=== PATIENT | male | born 1955 | race Caucasian/White ===

== ENCOUNTER 2018-05-20 12:05 | Observation (INO) ==
--- NOTE | 2018-05-20 12:29 | Diag Imaging Result Doc PS360 ---
EXAM: CT HEAD W/O CONTRAST INDICATION: stroke like symptoms TECHNIQUE: This exam was performed using automated exposure control, adjustment of mA or kV according to patient size, and/or use of iterative reconstruction technique. COMPARISON: 03/29/2011 FINDINGS: There is suggestion of mild periventricular white matter microangiopathy that is essentially stable. There is no definite acute infarct given the limited sensitivity of CT versus MRI. There is no discrete intracranial mass, mass effect, or intracranial hemorrhage. The surrounding soft tissues and bony structures are essentially unremarkable. IMPRESSION: Mild white matter microangiopathy that is grossly stable. No definite acute intracranial pathology by CT. Electronically signed by Nicko Staples 05/20/2018 12:27 PM
--- NOTE | 2018-05-20 12:53 | PROVIDER DOCUMENTATION ---
This chart was entered by Maliha Coelho Scribe, acting as scribe for Neftali Gómez MD. HPI-Neurological Disorder - General Chief Complaint: Stroke-Like Symptoms Stated Complaint: weakness Time Seen by Provider: 05/20/18 12:21 Source: patient Allergies/Adverse Reactions: Patient Allergies Allergy/AdvReac Type Severity Reaction Status Date / Time morphine Allergy Unknown Verified 05/20/18 12:29 warfarin [From Coumadin] Allergy Unknown Verified 05/20/18 12:29 Home Medications: Home Medication List Medication Instructions Recorded Confirmed Last Taken Type Aspirin 81 mg PO DAILY 05/20/18 05/20/18 05/19/18 History Metoprolol Tartrate 100 mg PO DAILY 05/20/18 05/20/18 1 Day Ago History ~05/19/18 - History of Present Illness-Neuro Nature of Presenting Problem: 62 y/o male presents to the ED with complaint of stroke-like symptoms for approximately 20-30 minutes approximately 1130 today. The patient reports sudden onset of dizziness and nauseous with right sided weakness. The patient gives a history of previous stroke in 2012 with similar symptoms. EMS states symptoms resolved prior to their arrival and BS 77, BP 168/130 which came down to WNL on recheck, HR in the 60's. . The patient does have a history of hypertension for which he takes Metoprolol, takes 81 mg. aspirin daily, and borderline diabetes. Allergy to Coumadin and Morphine. Onset/Duration: reports: just prior to arrival Timing: reports: resolved prior to arrival Context: reports: other (right sided weakness, dizziness) Any recent trauma/injury?: reports: none Character of Deficits: reports: new weakness (right). denies: impaired speech New weakness or altered sensation location:: reports: RUE, CHANTELLE Cognitive Baseline: alert, oriented x3 Gait Baseline: walks without assistance Associated Symptoms: reports: nausea, weakness (right). denies: vomiting Similar Symptoms Previously?: Yes Recently seen or treated by another doctor?: No Review of Systems - Adult - REVIEW OF SYSTEMS - ADULT Constitutional: denies: chills, fever, night sweats, weight gain, weight loss Eyes: reports: no symptoms reported Ears, Nose, Mouth & Throat: reports: no symptoms reported Cardiovascular: reports: no symptoms reported Respiratory: reports: no symptoms reported Gastrointestinal: reports: nausea. denies: diarrhea, vomiting Genitourinary: reports: no symptoms reported Musculoskeletal: reports: no symptoms reported Integumentary: reports: no symptoms reported Neurological: reports: dizziness/vertigo, loss of balance, paresthesia (right). denies: slurred speech, syncope Psychiatric: reports: no symptoms reported Endocrine: reports: no symptoms reported Hematologic/Lymphatic: reports: no symptoms reported Allergic/Immunologic: reports: no symptoms reported All Other Systems: Reviewed and Negative Past History - Adult - PAST MEDICAL HISTORY-ADULT Review of Records: reports: Old Records Reviewed, Medications Reviewed - IMMUNIZATION STATUS Childhood Immunizations: See Nurse Assessment Flu Vaccine: See Nurse Assessment - SOCIAL HISTORY Smoking: denies Substance Use: denies Physical Exam- Neurological - Physical Exam-Neuro Initial Vital Signs Reviewed: Yes General Appearance: alert, no apparent distress HENMT: normocephalic/atraumatic, moist mucous membranes, normal ENT inspection Head Injury: no evidence of injury. negative: Morgan's Sign Neck: supple Respiratory: lungs clear, normal breath sounds. negative: rales, rhonchi, wheezing Cardiovascular: regular rate, rhythm, no gallop, no JVD Abdominal Exam: non tender, soft. negative: guarding, rebound Extremity: normal range of motion, no pedal edema, no calf tenderness sort line Exam: normal hearing, normal speech, PERRL. negative: abnormal eye position, abnormal speech, facial asymmetry, facial droop, facial paresthesias, facial weakness Coordination/Gait: normal finger to nose Motor/Sensory: no motor deficit, no sensory deficit Neurologic: sort line II-XII nml as tested Integumentary: normal color, warm/dry Psych/Mental Status: normal mood/affect, oriented x 3 Progress - PLAN OF CARE/RESULTS Progress/Plan/Lab Results: Vital Signs - 8 hr 05/20/18 12:21 Temperature 97.6 F Pulse Rate 57 L Respiratory Rate 16 Blood Pressure 124/90 O2 Sat by Pulse Oximetry 96 Laboratory Results - last 24 hr 05/20/18 05/20/18 05/20/18 12:26 12:35 12:35 WBC 6.24 RBC 5.59 Hgb 16.4 Hct 47.7 MCV 85.3 MCH 29.3 MCHC 34.4 RDW Std Deviation 13.4 Plt Count 269 MPV 9.4 Immature Gran % (Auto) 0.0 Neut % (Auto) 56.5 Lymph % (Auto) 32.2 [place] % (Auto) 6.4 Eos % (Auto) 3.8 Baso % (Auto) 1.1 H Immature Gran # (Auto) 0.00 Neut # (Auto) 3.52 Lymph # (Auto) 2.01 [place] # (Auto) 0.40 Eos # (Auto) 0.24 Baso # (Auto) 0.07 PT INR PTT (Actin FS) Sodium 137 Potassium 3.7 Chloride 99 Carbon Dioxide 23 L Anion Gap 15 BUN 19 Creatinine 1.1 Estimated GFR/1.73 m2 > 60 BUN/Creatinine Ratio 17 Glucose 108 H POC Glucose 110 H Calculated Osmolality 277 Calcium 9.6 Total Bilirubin 0.35 AST 21 ALT 27 Alkaline Phosphatase 114 Troponin T Total Protein 6.8 Albumin 4.4 Globulin 2.4 Albumin/Globulin Ratio 1.8 05/20/18 05/20/18 12:35 12:35 WBC RBC Hgb Hct MCV MCH MCHC RDW Std Deviation Plt Count MPV Immature Gran % (Auto) Neut % (Auto) Lymph % (Auto) [place] % (Auto) Eos % (Auto) Baso % (Auto) Immature Gran # (Auto) Neut # (Auto) Lymph # (Auto) [place] # (Auto) Eos # (Auto) Baso # (Auto) PT 12.8 INR 0.90 PTT (Actin FS) 25.2 Sodium Potassium Chloride Carbon Dioxide Anion Gap BUN Creatinine Estimated GFR/1.73 m2 BUN/Creatinine Ratio Glucose POC Glucose Calculated Osmolality Calcium Total Bilirubin AST ALT Alkaline Phosphatase Troponin T < 0.010 Total Protein Albumin Globulin Albumin/Globulin Ratio Orders Category Date Time Status Admit - [facility] Routine AdmDCTranf 05/20/18 13:36 Active Activity - Strict Bedrest ORDERED Care 05/20/18 13:36 Active Cardiac Monitoring DIRECTED Care 05/20/18 12:32 Active Misc. NRSG Communication Order DIRECTED Care 05/20/18 13:38 Active Neurological Check Q4H Care 05/20/18 13:37 Active Resuscitation Status Routine Care 05/20/18 13:36 Ordered Saline Loc NOW Care 05/20/18 12:32 Active Vital Signs Order Q 4-HR ASSESS Care 05/20/18 13:36 Active Clear Liquid Diet Diet 05/20/18 13:38 Active CHEST-PORTABLE [RAD] Stat Exams 05/20/18 12:[address] HEAD W/O CONTRAST [CT] Stat Exams 05/20/18 12:06 Completed CBC WITH ELECTRONIC DIFF [HEME] Stat Lab 05/20/18 12:35 Completed COMPREHENSIVE METABOLIC PANEL [CHEM] Stat Lab 05/20/18 12:35 Completed PROTIME WITH INR [COAG] Stat Lab 05/20/18 12:35 Completed PTT [COAG] Stat Lab 05/20/18 12:35 Completed TROPONIN T Stat Lab 05/20/18 12:35 Completed Aspirin Med 05/21/18 09:00 Ordered 81 mg PO DAILY Oxygen Device Routine Oth 05/20/18 13:37 Active EKG [EKG] Stat Ther 05/20/18 12:32 Ordered Transfer/Admit Order [TRANSFER] Routine Transfer 05/20/18 13:39 Ordered Result Diagrams: 05/20/18 12:35 05/20/18 12:35 - EKG 1 Time of EKG reading by physician:: 12:28 EKG Read and Signed by:: Neftali Gómez (No STEMI) EKG Interpretation (*Must complete 3 of following elements*): Abnormal Rate: 57 Rhythm: sinus bradycardia Comments: voltage criteria for LVH - CT/MRI 1 CT Study: Head Impression: Normal (EXAM: CT HEAD W/O CONTRAST INDICATION: stroke like symptoms TECHNIQUE: This exam was performed using automated exposure control, adjustment of mA or kV according to patient size, and/or use of iterative reconstruction technique. COMPARISON: 03/29/2011 FINDINGS: There is suggestion of mild periventricular white matter microangiopathy that is essentially stable. There is no definite acute infarct given the limited sensitivity of CT versus MRI. There is no discrete intracranial mass, mass effect, or intracranial hemorrhage. The surrounding soft tissues and bony st ructures are essentially unremarkable. IMPRESSION: Mild white matter microangiopathy that is grossly stable. No definite acute intracranial pathology by CT. Electronically signed by Nicko Staples 05/20/2018 12:27 PM) - CONSULTS/PCP/HOSPITALIST Notification #1 *Consult/PCP/Hospitalist*: Dr. Green Time Discussed: 13:35 Consult Disposition: Admit Departure - Departure Date of Disposition Decision: 05/20/18 Time of Disposition Decision: 13:41 DIAGNOSIS: TIA (transient ischemic attack) Disposition: HOME 01 Certified Medical Emergency: Emergent Condition: Stable Additional Freetext Instructions: ED Follow Up Instructions: You have been treated by a care provider in the Emergency Department. These instructions are being provided to you so you can have an understanding of how to care for yourself upon discharge. Upon discharge from the Emergency Depar tment, you are responsible for making arrangements for follow-up care by a physician of your choice. Take all prescribed medications as directed. Return to the Emergency Department immediately for any new or worsening symptoms. You may call the Physician Referral phone number at [phone] to obtain a list of Physicians who are taking new patients. Referrals and Follow-Ups: Miguel Plata Jr, MD [Primary Care Provider] - - Critical Care Note This patient required my direct & personal management of CC.: No Attestation - Physician/ JOO Attestation Patient care was provided by Advanced Practice Provider:: No The physician spent face to face time with patient:: Yes Advanced Practice Provider documentation review:: Supervising physician onsite and consulted in the evaluation and care of this patient. The physician did have a face to face encounter with the patient. - NIH Stroke Scale NIH Type: Initial Evaluation Level of Consciousness: 0-Alert This chart was documented by the indicated scribe, (Maliha Coelho, Cl) and accurately reflects the services I performed and decisions made by me, Neftali Gómez MD, as attested by the provider's signature.
[2018-05-20 12:57] LABS: BASO# 0.07 X1000 (0.0-0.2); BASO% 1.1 % (0.0-0.8); EOS# 0.24 X1000 (0.0-0.7); EOS% 3.8 % (0.0-10.0); HEMATOCRIT 47.7 % (42.0-52.0); HEMOGLOBIN 16.4 g/dL (14.0-18.0); LYMPH# 2.01 X1000 (1.2-3.4); LYMPH% 32.2 % (20.5-51.1); MCH 29.3 PG (27-31); MCHC 34.4 g/dL (33-37); MCV 85.3 FL (81-99); MONO% 6.4 % (1.7-9.3); MPV 9.4 FL (7.4-10.4); NEUT# 3.52 X1000 (1.4-6.5); NEUT% 56.5 % (42.2-75.2); PLT 269 X1000 (130-400); RBC 5.59 XMIL (4.7-6.1); RDW 13.4 % (11.5-14.5); WBC 6.24 X1000 (4.8-10.8)
[2018-05-20 13:06] LABS: INR 0.9; PROTIME 12.8 Seconds (11.0-16.0)
[2018-05-20 13:07] LABS: PTT 25.2 Seconds (22.3-41.8)
[2018-05-20 13:27] LABS: AGAP 15; ALB/GLOB RATIO 1.8; ALBUMIN 4.4 g/dL (3.5-5.0); ALKALINE PHOSPHATASE 114 U/L (32-122); BUN 19 mg/dL (8-22); CALCIUM 9.6 mg/dL (8.8-10.2); CHLORIDE 99 mmol/L (98-107); COSMO 277; CREATININE 1.1 mg/dL (0.7-1.2); ESTIMATED GFR > 60; GLUCOSE 108 mg/dL (70-104); GOT 21 U/L (10-34); GPT 27 U/L (10-44); POTASSIUM 3.7 mmol/L (3.5-5.1); SODIUM 137 mmol/L (136-145); TCO2 23 mmol/L (25-35); TOTAL BILIRUBIN 0.35 mg/dL (0.20-1.00); TOTAL PROTEIN 6.8 g/dL (6.3-8.3)
--- NOTE | 2018-05-20 13:47 | Diag Imaging Result Doc PS360 ---
EXAM: CHEST-PORTABLE INDICATION: weakness TECHNIQUE: One view COMPARISON: 08/23/2012 FINDINGS: The lungs are grossly clear. There is no discrete pleural fluid collection or pneumothorax. The cardiac silhouette is slightly prominent but stable, probably due to a pericardial fat pad. Central vasculature is unremarkable. IMPRESSION: No evidence of acute pathology by plain radiograph. Electronically signed by Nicko Staples 05/20/2018 1:45 PM
[2018-05-20] MEDS: PLAVIX PO SCH (17:44)
--- NOTE | 2018-05-20 17:51 | HISTORY AND PHYSICAL ---
Mr. Stafford 62-year-old white gentleman, patient of Dr. Plata was in his usual state of health. The patient was at the a meeting. Patient claimed it was hot, he got dizzy which he meant lightheaded. He did have right-sided weakness lasted for 15 to 20 minutes. Bystander or his coworker did notice some slurred speech. By the time EMS arrived his symptoms resolved. The patient was brought to emergency room. Evaluated by ER physician. The patient had CT scan of the head done which did reveal mild white matter microangiopathy that was grossly stable. No definite acute intracranial pathology by CT. Since then the patient is doing better. Because of his history of CVA in the past and his presentation the patient was admitted for further care. The patient's risk factor include hypertension, male and history of stroke in the past. The patient denied any headache. No typical chest pain or palpitations. No history of unusual cough, expectoration, or hemoptysis. The patient does have problem with epigastric discomfort, at times heartburn. No diarrhea, blood or mucus in the stool. Denied any dysuria or hematuria. No focal weakness. No runny nose, stuffy nose, sinus drainage. Denied any leg swelling. ALLERGIES: Morphine and Coumadin. PAST MEDICAL HISTORY: Significant for gastroesophageal reflux disease, hypertension, history of CVA. PERSONAL HISTORY: Patient is working, denied alcohol or substance abuse. FAMILY HISTORY: Father with dementia and had heart disease. Mother of dementia and complication. MEDICATION: Includes Nexium, hydralazine, Toprol, Mirapex, Micardis, aspirin. PHYSICAL EXAMINATION: GENERAL: Middle-aged white gentleman moderately obese in no acute distress. VITAL SIGNS: Blood pressure 124/90, pulse 57, respirations 16, temperature 97.6 degrees. SKIN: Normal turgor. No rash or petechiae. HEAD: Atraumatic, normocephalic. [place] conjunctivae. Anicteric sclerae. Extraocular muscle movement normal. Fundus cannot be penetrated. Good oral hygiene. No tonsillopharyngeal congestion or exudate. Ears and nose benign. NECK: Supple. No JVD, thyromegaly or lymphadenopathy. CHEST: Bilateral good air entry present. No rales or rhonchi. CARDIOVASCULAR: S1 and S2 heard. No gallop or thrill. ABDOMEN: Soft, globular. Bowel sounds present. No organomegaly or mass. EXTREMITIES: No cyanosis, clubbing. No acute DVT. Peripheral pulsation intact. 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 Cranial nerves 2 through 12 grossly intact. Deep tendon reflex + 2, plantars downgoing, no focalities. LABORATORY DATA: Hemoglobin 16.4, hematocrit 47.7, WBC count 6.24, platelet count 269,000. PT/INR 0.9, PTT 25.2. Electrolytes were fairly benign. CO2 23, blood glucose 108. CONSIDERATION: Patient admitted with transient ischemic attack. Patient does have history of cerebrovascular accident. Currently no residual weakness, patient was on aspirin at home. I am going to add Plavix. Other problems include hypertension, gastritis and reflux disease. 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 We are going to get those results. Will do neuro check, telemetry monitoring, close observation. Initial CT scan was negative. I am going to get MRI of the brain. Fall precaution. Encouraged patient to lose weight. cc: Steven Stallings MD
[2018-05-20] MEDS: MIRAPEX PO SCH (19:49)
[2018-05-20] MEDS: TOPROL XL PO SCH (22:13)
[2018-05-21 07:18] LABS: BASO# 0.05 X1000 (0.0-0.2); BASO% 0.8 % (0.0-0.8); EOS# 0.22 X1000 (0.0-0.7); EOS% 3.6 % (0.0-10.0); HEMATOCRIT 48.9 % (42.0-52.0); HEMOGLOBIN 16.5 g/dL (14.0-18.0); LYMPH# 1.88 X1000 (1.2-3.4); MCH 29.5 PG (27-31); MCHC 33.7 g/dL (33-37); MCV 87.3 FL (81-99); MONO# 0.36 X1000 (0.11-0.59); MONO% 5.9 % (1.7-9.3); MPV 9.6 FL (7.4-10.4); NEUT# 3.56 X1000 (1.4-6.5); NEUT% 58.7 % (42.2-75.2); PLT 253 X1000 (130-400); RDW 13.7 % (11.5-14.5); WBC 6.07 X1000 (4.8-10.8)
[2018-05-21 07:30] LABS: HEMOGLOBIN A1C 5.4 % (4.8-6.0)
[2018-05-21 07:54] LABS: ESTIMATED GFR 56
[2018-05-21 07:59] LABS: AGAP 13; ALB/GLOB RATIO 1.5; ALKALINE PHOSPHATASE 104 U/L (32-122); BUN 18 mg/dL (8-22); CALCIUM 8.9 mg/dL (8.8-10.2); CHLORIDE 100 mmol/L (98-107); CHOLESTEROL 238 mg/dL (0-200); COSMO 281; CREATININE 1.3 mg/dL (0.7-1.2); GLUCOSE 101 mg/dL (70-104); GOT 21 U/L (10-34); GPT 27 U/L (10-44); HDL 29 mg/dL (35-55); MAGNESIUM 2.1 mg/dL (1.5-2.7); POTASSIUM 3.7 mmol/L (3.5-5.1); SODIUM 140 mmol/L (136-145); TCO2 27 mmol/L (25-35); TOTAL BILIRUBIN 0.44 mg/dL (0.20-1.00); TOTAL PROTEIN 6.7 g/dL (6.3-8.3); TRIGLYCERIDES 426 mg/dL (39-160)
[2018-05-21] MEDS ORDERED: ASPIRIN PO SCH (09:00)
[2018-05-21] MEDS ORDERED: APRESOLINE PO SCH (09:00)
[2018-05-21] MEDS ORDERED: MICARDIS PO SCH (09:00)
[2018-05-21] MEDS: PLAVIX PO SCH (09:28)
[2018-05-21] MEDS: TOPROL XL PO SCH ×2 (09:28→20:23)
[2018-05-21] MEDS ORDERED: TRILIPIX PO SCH (12:30)
[2018-05-21] MEDS ORDERED: LIVALO PO SCH (12:30)
--- NOTE | 2018-05-21 12:48 | PROGRESS NOTE ---
DATE: 05/21/2018 SUBJECTIVE: The patient says he feels fine, not having symptoms. He apparently had numbness and weakness on the right side of his body for about 20 minutes during the occurrence, and it was reported that he had some slurred speech. This seems to have all resolved. He has had a stroke that affected the same side of his body about 7 years ago. The patient has had hyperlipidemia, but has not tolerated statins well, and so has not been taking anything for his lipids. OBJECTIVE: Vital Signs: Blood pressure is 130/70, respirations 20, pulse 58, temperature 97.6 degrees Fahrenheit. HEENT: Normocephalic. EOMs intact. PERRLA. Throat clear. Lungs: Clear to auscultation and percussion without rhonchi, rales, or wheezes. Heart: Regular rate and rhythm without murmurs, gallops, friction rubs. Abdomen: Soft. Active bowel sounds. No organomegaly or tenderness. Neurological: Intact grossly. LABORATORY DATA: Chemistries are essentially normal. Creatinine up a little at 1.3. CBC normal. Triglycerides were 426, cholesterol 238, HDL 29, LDL not reportable due to the high triglycerides. The patient has been started on Plavix and aspirin. ASSESSMENT: 1. Transient ischemic attack. 2. Previous cerebrovascular accident. 3. Uncontrolled hyperlipidemia. 4. Hypertension. PLAN: The patient has had a recent echo and carotid flow studies. Will try to get those results. Will start him on Pepcid 40 mg p.o. b.i.d. Will start him on Trilipix 135 mg daily. Will start him on Livalo 4 mg daily. Will see if he can tolerate the Livalo better than the other statins. MRI scan has been ordered. He says he gets very claustrophobic. Will give him Xanax 1 mg 45 minutes prior to going for the scan. Will consult Neurology. cc: MD Steven Padilla Jr, MD
[2018-05-21] MEDS: PEPCID PO SCH ×2 (15:18→20:23)
[2018-05-21 16:24] LABS: INR 0.91; PROTIME 12.9 Seconds (11.0-16.0); PTT 27.2 Seconds (22.3-41.8)
[2018-05-21 16:25] LABS: BASO# 0.06 X1000 (0.0-0.2); EOS# 0.17 X1000 (0.0-0.7); EOS% 2.8 % (0.0-10.0); HEMATOCRIT 49.1 % (42.0-52.0); LYMPH# 1.74 X1000 (1.2-3.4); MCH 29.9 PG (27-31); MCHC 34.6 g/dL (33-37); MCV 86.4 FL (81-99); MONO# 0.37 X1000 (0.11-0.59); MONO% 6.2 % (1.7-9.3); MPV 9.3 FL (7.4-10.4); NEUT# 3.65 X1000 (1.4-6.5); PLT 266 X1000 (130-400); RBC 5.68 XMIL (4.7-6.1); RDW 13.6 % (11.5-14.5); WBC 5.99 X1000 (4.8-10.8)
[2018-05-21 16:32] LABS: AGAP 15; BUN 18 mg/dL (8-22); CALCIUM 8.9 mg/dL (8.8-10.2); CHLORIDE 100 mmol/L (98-107); COSMO 279; CREATININE 1.2 mg/dL (0.7-1.2); ESTIMATED GFR > 60; GLUCOSE 91 mg/dL (70-104); POTASSIUM 3.6 mmol/L (3.5-5.1); SODIUM 139 mmol/L (136-145); TCO2 24 mmol/L (25-35)
--- NOTE | 2018-05-21 16:33 | Diag Imaging Result Doc PS360 ---
EXAM: CT HEAD W/O CONTRAST INDICATION: Code Stroke TECHNIQUE: This exam was performed using automated exposure control, adjustment of mA or kV according to patient size, and/or use of iterative reconstruction technique. COMPARISON: 05/20/2018 FINDINGS: There is patchy low attenuation in the periventricular and subcortical white matter suggesting mild microangiopathy, stable. There may be minimal encephalomalacia involving the left occipital lobe. This is also stable. There is no definite acute infarct given the limited sensitivity of CT versus MRI. There is no discrete intracranial mass, mass effect, or intracranial hemorrhage. The surrounding soft tissues and bony structures are essentially unremarkable. IMPRESSION: Stable chronic changes as described. No definite acute intracranial pathology by CT. Electronically signed by Nicko Staples 05/21/2018 4:31 PM
[2018-05-21] MEDS ORDERED: POTASSIUM CHLORIDE 10 MEQ in NS 1,000 ML IV SCH (17:00)
--- NOTE | 2018-05-21 17:27 | PROGRESS NOTE ---
DATE: 05/21/2018 CHIEF COMPLAINT: Slurred speech. Right-sided weakness. Mr. Stafford 62-year-old white gentleman admitted with numbness, tingling right side and some slurred speech. The patient does have history of CVA in the past. Known case of hypertension, hyperlipidemia. The patient admitted with similar symptoms yesterday. The patient was doing fairly well until today when he developed these symptoms. I advised nurse to call code stroke, order CT scan of the brain and certain lab. Patient's symptoms resolved within 10 minutes. We heard repeat CT scan did not show any acute changes. The patient's speech also improved. The patient claimed this time symptoms are not as severe as yesterday. He denied any headache. No high-grade fever, chills. No history of urinary or bowel incontinence. No dysphagia or odynophagia. His slurred speech improved. PAST MEDICAL HISTORY: Significant for CVA, hypertension, hyperlipidemia. OBJECTIVE: Vital signs: Blood pressure at noon 121/75, pulse 63, respirations 20, temperature 97.7 degrees. Skin: No rash or petechiae. HEENT: Head atraumatic, normocephalic. [place] conjunctivae. Anicteric sclerae. Extraocular muscle movement normal. Fundus cannot be penetrated. Good oral hygiene. No tonsillopharyngeal congestion or exudate. Ears and nose benign. Neck: Supple. No JVD, thyromegaly or lymphadenopathy. Chest: Bilateral good air entry present. No rales or rhonchi. CVS: S1 and S2 heard. No gallop or thrill. Abdomen: Soft. No distention. Bowel sounds present. No organomegaly or mass. 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 Cranial nerves 2 through 12 grossly intact. Deep tendon reflex +2. 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 Muscle power seems to be symmetrical. Plantars were downgoing. CONSIDERATION: Transient ischemic attack. When I saw the patient he regained baseline status. Hypertension, hyperlipidemia. Patient was started on Livalo and Trilipix. History of cerebrovascular accident. I will transfer patient to ICU. Hydration. Patient is on aspirin and Plavix. Will continue Pepcid. Discussed patient's presentation with Dr. Valenzuela, the neurologist. Will do neurology consult and neuro check. I am trying to get CT angiogram of carotid and brain. Continue rest of the treatment. We did discuss about anticoagulation and we decided to wait. I am going to hold on his Micardis. Overall plan and prognosis discussed with the patient. cc: Steven Stallings MD
[2018-05-21] MEDS: MIRAPEX PO SCH (18:00)
--- NOTE | 2018-05-21 19:55 | Diag Imaging Result Doc PS360 ---
EXAM: CT ANGIOGRAM HEAD/NECK INDICATION: tia TECHNIQUE: This exam was performed using automated exposure control, adjustment of mA or kV according to patient size, and/or use of iterative reconstruction technique. Thin section axial images through the head and neck were obtained. 3-D MIPS were generated. COMPARISON: No prior CTA had or neck is available for comparison. FINDINGS: Head: There is focal moderate stenosis involving the right MCA just proximal to the bifurcation. There is normal contrast opacification distal to this. There is no evidence of flow-limiting stenosis involving the left MCA. The left and right ACAs are patent throughout. 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 It appears patent, however. The right CONCRETE STONE FABRICATING SUPERVISOR is patent. There are a couple of focal stenoses involving the basilar artery, one of which is fairly severe. However, it does remain patent. There is mild atherosclerotic calcification involving the cavernous segments of the ICAs bilaterally. No high-grade stenosis is identified. No cerebral aneurysm or vascular malformation is identified. Neck: There is only trace atherosclerotic calcification involving the proximal ICA on the right. There is no evidence of flow-limiting stenosis, vascular malformation, dissection, or aneurysm involving the internal carotid arteries, external carotid arteries, or the common carotid arteries. Only a trace amount of contrast is seen in the left vertebral artery distally the remainder of the left vertebral artery is nonvisualized indicating that it is severely congenitally hypoplastic, or less likely, has been excluded. There is mild atherosclerotic calcification and narrowing involving the distal vertebral artery on the right near the foramen magnum. It remains patent. There is no flow-limiting stenosis or vascular malformation identified involving the right vertebral artery. IMPRESSION: 1.Focal stenoses seen at the M1 segment of the right MCA just proximal to the bifurcation as well as the basilar artery as described. No other intracranial flow-limiting arterial stenosis is identified. 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 3.Trace atherosclerotic calcification at the proximal right ICA but no flow-limiting stenosis involving the carotid systems bilaterally. Electronically signed by Nicko Staples 05/21/2018 7:52 PM
[2018-05-21 22:18] VITALS: BP 136/88
[2018-05-22] MEDS ORDERED: XANAX PO SCH (08:00)
--- NOTE | 2018-05-22 08:14 | EKG Report ---
Test Performed on : 05/21/2018 4:37:01 PM Test Reason : Poss CVA Blood Pressure : / mmHG Vent. Rate : 054 BPM Atrial Rate : 054 BPM P-R Int : 176 ms QRS Dur : 098 ms QT Int : 426 ms P-R-T Axes : 024 -33 -06 degrees QTc Int : 403 ms Sinus bradycardia. Left axis deviation Voltage criteria for left ventricular hypertrophy Abnormal ECG When compared with ECG of 20-MAY-2018 12:27, (Unconfirmed) No significant change was found Unconfirmed Result
--- NOTE | 2018-05-22 10:39 | EKG Report ---
Test Performed on : 05/20/2018 12:27:10 PM Test Reason : STROKE LIKE Blood Pressure : / mmHG Vent. Rate : 057 BPM Atrial Rate : 057 BPM P-R Int : 156 ms QRS Dur : 092 ms QT Int : 428 ms P-R-T Axes : 036 -29 -01 degrees QTc Int : 416 ms Sinus bradycardia. Voltage criteria for left ventricular hypertrophy Abnormal ECG When compared with ECG of 29-MAR-2011 13:19, No significant change was found Unconfirmed Result
== END 2018-05-21 23:00 | disposition short-term general hospital (02) ==
LOC: SUPCPDRO → 3N 12:05 → ED 12:05 → 3N 14:37 → ICU 05-21 17:28
PROVIDERS: ADMIT Internal Medicine; ATTEND Emergency Medicine
CPT/HCPCS: 70450; 70496; 70498; 71010; 71045; 80048; 80053; 80061; 82607; 82746; 82948; 83036; 83735; 84484; 85025; 85379; 85610; 85730; 93005; 93306; 93880; 94761; A9270; J3480; J7030; Q9967; XXXXX